=== PATIENT | female | born 1980 | race Caucasian/White ===

== ENCOUNTER 2019-05-15 15:32 | Emergency (ER) | payer OTHER ==
[2019-05-15] MEDS ORDERED: Ketorolac Tromethamine 30 MG/ML VIAL ONE (16:14)
--- NOTE | 2019-05-15 16:56 | RAD ---
RIGHT SHOULDER THREE VIEWS: INDICATIONS: Right shoulder pain, progressive in intensity. 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 There is no fracture or dislocation. IMPRESSION: Mild degenerative change, without acute osseous abnormality visualized. POS: [id number]
== END 2019-05-15 16:57 | disposition home or self-care (01) ==
LOC: SCSER 15:32
DX: M25.511 Pain in right shoulder (principal); F41.9 Anxiety disorder, unspecified; F20.9 Schizophrenia, unspecified; F17.210 Nicotine dependence, cigarettes, uncomplicated; F60.9 Personality disorder, unspecified
CPT/HCPCS: 96372; J1885